=== PATIENT | male | born 1975 | race Caucasian/White ===

== ENCOUNTER 2019-07-29 19:08 | Outpatient (CLI) | payer OTHER | END 2019-07-29 19:09 | disposition home or self-care (01) | LOC: SC 19:08 | PROVIDERS: ATTEND Internal Medicine Pulmonary Disease | DX: G47.33 Obstructive sleep apnea (adult) (pediatric) (principal); E66.3 Overweight; Z68.28 Body mass index [BMI] 28.0-28.9, adult | CPT/HCPCS: 95810 ==

== ENCOUNTER 2019-08-05 10:42 | Outpatient (CLI) | payer OTHER ==
[2019-08-05 11:47] VITALS: BP 146/96
--- NOTE | 2019-08-05 11:47 | SLEEP CARE CONSULTATION ---
Information from patient questionnaire entered by Amina Goldstein. I have reviewed and concur with the information entered by Amina Goldstein. This document represents the service I personally performed and the decisions made by me, Elisa Wright RN, MSN, [employer]. History of Present Illness Initial Franklin Sleepiness Scale score: 10 Current Franklin Sleepiness Scale score: 13 Additional HPI information: KYLE TANNER returns for follow up and results of the recently performed polysomnography. I explained the pathophysiology behind obstructive sleep apnea. We then spent quite a bit of time discussing different treatment options. For mild obstructive sleep apnea, surgery and oral appliance are alternatives to nasal CPAP therapy but in moderate or severe cases, nasal CPAP is the most effective and reliable treatment. Because apnea is primarily in supine position, then positional management therapy could be effective. Methods discussed such as positioning with pillows, using a T-shirt with tennis balls in the back, and shown commercial products jairo t have a pillow format on back to prevent supine sleep. I reviewed the impact of weight changes on sleep apnea and strongly recommended losing weight. After some discussion, the patient opted to go with the oral appliance and Non Pap treatment pamphlets reviewed and given to patient. Patient counseled not drink alcohol less than 4 hours before bedtime as it can increase snoring and apnea. Patient was cautioned about risks of drowsy driving until sleepiness symptoms resolve. Patient denies drowsy driving. AAS patient education on snoring and sleep apnea given and reviewed. Sleep Study - Results Polysomnography/Home Sleep Study results: The quality of the study is good. The patient had slightly reduced sleep efficiency due to several awakenings after the sleep onset. The sleep architecture was abnormal for sleep fragmentation and reduced amount of time spent in slow wave sleep (N3). Respiratory monitoring showed moderate obstructive sleep apnea-hypopnea (AHI = 26.7) associated with frequent arousals, oxyhemoglobin desaturation and mild hypoxia (wolf oxygen saturation of 87%). The respiratory events occurred mainly during supine sleep (supine AHI = 66.8; non-supine = 7.11). Snore was loud in intensity. There was no significant periodic leg movement of sleep. Cardiac rhythm was normal sinus rhythm without significant arrhythmia. No abnormal behavior (parasomnia) observed during the night. Allergies and Home Medications Known drug allergies: No Home medication list reviewed: Yes (no changes ) Review of Systems Review of systems same as previous: Yes Physical Exam Blood Pressure: 146/96 Cuff size: long Heart Rate: 90 O2 Saturation: 98 Height: 5 ft 9 in Weight: 197 lb Body Mass Index: 29.0 BMI Classification: Overweight Impression and Plan 1. Obstructive Sleep Apnea-Hypopnea Syndrome, moderate, with lowest oxygen saturation of 87%. Obviously this is the cause of the patients symptoms of unrefreshed sleep, and excessive daytime sleepiness. Positive pressure therapy could benefit his depression and GERD. As mentioned above, the patient will try an oral appliance. A prescription and list of dentists given. Follow up process discussed. Because the apnea is more severe supine, I instructed to avoid sleeping supine using pillow positioning until able to use his oral appliance 2. Elevated blood pressure. 146/96 then 140/90 at end of visit. Patient advised of health risks associated with untreated high blood pressure and advised to follow up with PCP for further evaluation. * advanced mandibular device ( oral appliance) * Attempt to lose weight. * Avoid alcohol consumption near bedtime. * Avoid supine sleep until using oral appliance * The patient is again cautioned about driving until sleepiness completely resolves. * Return 3months after appliance obtained. I will assess response to therapy and compliance at that time. * Follow up with PCP for further evaluation of elevated BP * Time Spent with Patient (minutes): 40 I spent 100% of this visit face to face with the patient with greater than 50% of this was spent time counseling the patient and coordination of care.
== END 2019-08-05 10:43 | disposition home or self-care (01) ==
LOC: SC 10:42
PROVIDERS: ATTEND Nurse Practitioner Family
DX: G47.33 Obstructive sleep apnea (adult) (pediatric) (principal); R03.0 Elevated blood-pressure reading, without diagnosis of hypertension; E66.3 Overweight; Z68.29 Body mass index [BMI] 29.0-29.9, adult
CPT/HCPCS: 99212; 99215